=== PATIENT | female | born 1995 | race Caucasian/White ===

== ENCOUNTER 2022-10-26 20:28 | Emergency (ER) | payer OTHER ==
[2022-10-26 20:42] VITALS: BP 100/64; PULSE 98; RESP 18; TEMP 98; BMI 31.2
[2022-10-26] MEDS ORDERED: LIDOCAINE HCL 2% (20ML MULTI-DOSE VIAL) ONE (21:58)
[2022-10-26] MEDS ORDERED: IBUPROFEN 600 MG TABLET (FP) PO ONE ×2 (23:24→23:28)
[2022-10-26] MEDS ORDERED: DOXYCYCLINE HYCLATE 100 MG CAPSULE PO ONE ×2 (23:28→23:29)
== END 2022-10-26 23:32 | disposition home or self-care (01) ==
LOC: JERFT 20:28
DX: L60.0 Ingrowing nail (principal); L03.032 Cellulitis of left toe
CPT/HCPCS: 99283-25